=== PATIENT | female | born 1940 | race Caucasian/White ===

== ENCOUNTER 2022-03-05 19:34 | Emergency (ER) | payer OTHER ==
[~2022-03-05] VITALS: Ht 152.4 cm; Wt 57.2 kg
[2022-03-05 20:23] VITALS: BP_SYST 130
--- NOTE | 2022-03-05 20:30 | NUR ---
Patient triaged and placed in waiting room. VS checked and patient appears in no acute distress at this time. Accompanied by family, awaiting available bed, and MD notified of need for MSE.
--- NOTE | 2022-03-05 20:39 | NUR ---
ER Dr. Figueroa examining patient in waiting room
[2022-03-05] MEDS ORDERED: ONDA-8 TL (22:27)
[2022-03-05] MEDS ORDERED: DOCU250C14 PO (22:27)
[2022-03-05] MEDS ORDERED: HYDR-3917 PO (22:27)
[2022-03-05] MEDS ORDERED: ACET-2634 PO (22:27)
--- NOTE | 2022-03-05 22:41 | NUR ---
Patient ambulatory to bed 8
[2022-03-05 23:13] VITALS: BP_SYST 125
--- NOTE | 2022-03-05 23:13 | NUR ---
Patient given written and verbal discharge instructions and verbalizes understanding. ER MD discussed with patient the results and treatment provided. Patient in stable condition. ID arm band removed. Rx of TYLENOL, COLACE, NORCO, ZOFRAN given. Patient educated on pain management and to follow up with PMD. Pain Scale 3/10. Opportunity for questions provided and answered. Medication side effect fact sheet provided.
== END 2022-03-05 23:13 | disposition home or self-care (01) ==
LOC: SED 19:34
DX: S62.235A Other nondisplaced fracture of base of first metacarpal bone, left hand, initial encounter for closed fracture (principal); S00.83XA Contusion of other part of head, initial encounter; E11.9 Type 2 diabetes mellitus without complications; K21.9 Gastro-esophageal reflux disease without esophagitis; I10 Essential (primary) hypertension; E78.5 Hyperlipidemia, unspecified; Z79.899 Other long term (current) drug therapy; W11.XXXA Fall on and from ladder, initial encounter; Y93.89 Activity, other specified; Y92.89 Other specified places as the place of occurrence of the external cause; Y99.8 Other external cause status
CPT/HCPCS: 70450-TC; 70486-TC; 76376; 99284

== ENCOUNTER 2023-04-09 08:46 | Outpatient (CLI) | payer OTHER ==
[~2023-04-09 08:46] MED LIST: ACET-2634 PO; DOCU250C14 PO; HYDR-3917 PO; ONDA-8 TL
== END 2023-04-09 18:14 | disposition home or self-care (01) ==
LOC: SNM 08:46
PROVIDERS: ATTEND Colon & Rectal Surgery
DX: K80.50 Calculus of bile duct without cholangitis or cholecystitis without obstruction (principal); K74.60 Unspecified cirrhosis of liver; R16.0 Hepatomegaly, not elsewhere classified
CPT/HCPCS: 78226; A9537

== ENCOUNTER 2023-05-16 05:30 | Day surgery (SDC) | payer OTHER ==
[~2023-05-16] VITALS: Ht 152.4 cm; Wt 46.8 kg
[2023-05-16 06:21] LABS: BASOPHILS # (AUTO) 0.1 K/uL (0.0-0.2); BASOPHILS % (AUTO) 0.6 % (0.0-2.0); EOSINOPHILS # (AUTO) 0.3 K/uL (0.0-0.4); EOSINOPHILS % (AUTO) 3.4 % (0.0-4.0); HEMATOCRIT 36.3 % (36-48); HEMOGLOBIN 12.1 g/dL (12.0-16.0); LYMPHOCYTES # (AUTO) 2.4 K/uL (1.0-5.5); LYMPHOCYTES % (AUTO) 25.2 % (20.5-51.5); MEAN CORPUSCULAR HEMOGLOBIN 31 pg (27-31); MEAN CORPUSCULAR HGB CONC 33 % (32-36); MEAN CORPUSCULAR VOLUME 93 fL (79.0-98.0); MONOCYTES # (AUTO) 0.6 K/uL (0.0-1.0); MONOCYTES % (AUTO) 6.4 % (1.7-9.3); NEUTROPHILS # (AUTO) 6.1 K/uL (1.8-7.7); NEUTROPHILS % (AUTO) 64.4 % (40.0-70.0); PLATELET COUNT (AUTO) 194 K/uL (130-430); RED BLOOD CELL COUNT(AUTO) 3.92 MIL/uL (4.2-6.2); RED CELL DISTRIBUTION WIDTH 16.1 % (9.0-15.0); WHITE BLOOD COUNT (AUTO) 9.5 K/uL (4.8-10.8)
[2023-05-16 06:37] LABS: ANION GAP 13 (5-15); CALCIUM 10.6 mg/dL (8.4-11.0); CARBON DIOXIDE 25 mmol/L (23-29); CHLORIDE 104 mmol/L (98-107); CREATININE 1.27 mg/dL (0.55-1.30); GLUCOSE 116 mg/dL (74-106); POTASSIUM 4.3 mmol/L (3.5-5.1); SODIUM SERUM 142 mmol/L (136-145); UREA NITROGEN, BLOOD 19 mg/dL (8-21)
[2023-05-16 06:41] LABS: ALANINE AMINOTRANSFERASE 31 U/L (12-78); ALBUMIN 3.5 g/dL (3.4-4.8); ASPARTATE AMINOTRANSFERASE 30 U/L (10-37); TOTAL BILIRUBIN 0.7 mg/dL (0.0-1.0); TOTAL PROTEIN, SERUM 7.7 g/dL (6.4-8.3)
[2023-05-16] MEDS ORDERED: SIMETHICONE 40 MG/0.6 ML ML ONE (06:47)
[2023-05-16 07:03] LABS: INR 1.1 (0.8-1.2); PROTHROMBIN TIME 10.9 SECS (9.5-12.5)
[2023-05-16 07:14] VITALS: O2SAT 100
[2023-05-16] MEDS: INDOMETHACIN 50 MG SUPP.RECT RC ONE (07:53)
[2023-05-16] MEDS ORDERED: ETOMIDATE 20 MG/ 10 ML VIAL (AMIDATE) ONE (07:59)
[2023-05-16] MEDS ORDERED: SUCCINYLCHOLINE CHLORIDE 20 MG/ML(QUELICIN) ONE (07:59)
[2023-05-16] MEDS ORDERED: ONDANSETRON HCL 4 MG/2 ML VIAL ONE (07:59)
[2023-05-16] MEDS ORDERED: METOCLOPRAMIDE HCL 10 MG/10 ML UDC ONE (07:59)
[2023-05-16] MEDS ORDERED: LIDOCAINE 2%, 20 ML MDV ONE (07:59)
[2023-05-16] MEDS ORDERED: SEVOFLURANE 15 MIN GAS INH ONE (07:59)
[2023-05-16] MEDS ORDERED: ONDANSETRON HCL 4 MG/2 ML VIAL IVP PRN (08:45)
[2023-05-16] MEDS ORDERED: LR 1,000 ML IV SCH (08:45)
[2023-05-16] MEDS ORDERED: KETOROLAC TROMETHAMINE 30 MG VIAL IVP PRN (08:45)
[2023-05-16 12:18] VITALS: BP_SYST 127; PULSE 77; RESP 17
== END 2023-05-16 11:18 | disposition home or self-care (01) ==
LOC: SMU 05:30 → SDS 05:30 → EDSTATUS 07:30 → SDS 11:18
PROVIDERS: ATTEND Internal Medicine Gastroenterology
DX: K80.50 Calculus of bile duct without cholangitis or cholecystitis without obstruction (principal); K29.50 Unspecified chronic gastritis without bleeding; K31.89 Other diseases of stomach and duodenum; K74.69 Other cirrhosis of liver; C22.0 Liver cell carcinoma; I85.00 Esophageal varices without bleeding; K44.9 Diaphragmatic hernia without obstruction or gangrene; I10 Essential (primary) hypertension; E11.9 Type 2 diabetes mellitus without complications; F41.9 Anxiety disorder, unspecified; F32.A Depression, unspecified; J45.909 Unspecified asthma, uncomplicated; M19.90 Unspecified osteoarthritis, unspecified site; Z98.891 History of uterine scar from previous surgery; Z90.710 Acquired absence of both cervix and uterus; Z98.890 Other specified postprocedural states; Z79.899 Other long term (current) drug therapy
CPT/HCPCS: 43262; 43239; 43264; 80053; 85025; 85610; 36415; 93005; 71045; 74330; 82948; 88305; 88312; 88313; J8597; J2405; J0330; Q9967; C1769; J2001; J3490